=== PATIENT | female | born 1995 | race African-American/Black ===

== ENCOUNTER 2019-04-12 10:08 | Outpatient (CLI) | payer OTHER ==
[2019-04-12 11:05] LABS: #Eosinphils 0.3 thou/uL (0.0-0.7); #Lymphocytes 2.8 thou/uL (1.20-3.40); #Monocytes 0.6 thou/uL (0.11-0.59); #Neutrophils 4.7 thou/uL (1.40-6.50); %Basophils 0.2 % (0.0-1.0); %Eosinophils 3.5 % (0.0-10.0); %Monocytes 6.9 % (0.0-10.0); %Neutrophils 56.4 % (42.0-75.0); Hemoglobin 13.4 g/dL (12.0-16.0); Mean Corpuscular HGB CONC 33.9 g/dL (32.0-36.0); Mean Corpuscular Hemoglobin 29.5 pg (27.0-31.0); Mean Corpuscular Volume 86.8 fL (78.0-98.0); Mean Platelet Volume 7.5 fL (7.4-10.4); Platelet Count 392 thou/uL (130-400); RBC Distribution Width 12.1 % (11.5-14.5); Red Blood Cell (RBC) Count 4.54 mill/uL (4.20-5.40); White Blood Cell (WBC) Count 8.4 thou/uL (4.8-10.8)
[2019-04-12 11:08] LABS: BHCG - Serum Negative (NEGATIVE); Pregs Control Background? CLEAR/WHITE (CLR/WHITE); Pregs Control Bar Appear? YES (CONTROL BAR)
== END 2019-04-12 10:09 | disposition home or self-care (01) ==
LOC: LABBT 10:08
PROVIDERS: ATTEND Orthopaedic Surgery Hand Surgery
DX: Z01.812 Encounter for preprocedural laboratory examination (principal); M79.89 Other specified soft tissue disorders
CPT/HCPCS: 84703; 85025

== ENCOUNTER 2019-04-14 07:35 | Day surgery (SDC) | payer OTHER ==
[2019-04-12 10:28] VITALS: BMI 27.4
[2019-04-14] MEDS ORDERED: ceFAZolin Sodium (SDC) 2 GM/100 ML BAG ONE (08:24)
[2019-04-14] MEDS ORDERED: Bacitracin Zinc Ointment 30 gm TUBE ONE (08:56)
[2019-04-14] MEDS ORDERED: Sodium Chloride 0.9% 10 ML ONE (08:56)
[2019-04-14] MEDS ORDERED: Bupivacaine PF 0.5% 30 ML VIAL ONE (08:56)
[2019-04-14] MEDS ORDERED: Scopolamine 1.5 mg/72 hour Patch ONE (09:50)
[2019-04-14] MEDS ORDERED: Fentanyl 100 MCG/2 ML VIAL ONE ×2 (09:55→12:38)
[2019-04-14] MEDS ORDERED: Midazolam HCl 2 mg/2 ml Vial ONE (09:55)
[2019-04-14] MEDS ORDERED: Thrombin 5000 UNITS/5 ML VIAL ONE (11:19)
[2019-04-14] MEDS ORDERED: Ketorolac Tromethamine 30 MG/ML VIAL ONE (12:43)
[2019-04-14] MEDS ORDERED: Promethazine HCl 25 MG/ML VIAL ONE (12:47)
[2019-04-14] MEDS ORDERED: Ondansetron PF 4 MG/2 ML Vial ONE (15:44)
[2019-04-14] MEDS ORDERED: Lidocaine 1% PF 5 ML VIAL ONE (15:44)
[2019-04-14] MEDS ORDERED: PROPOFOL 200 MG/20 ML VIAL ONE (15:44)
--- NOTE | 2019-04-17 12:02 | OP ---
DATE OF PROCEDURE: 04/14/2019 PREOPERATIVE DIAGNOSIS: Right index finger spindle. 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 PROCEDURES PERFORMED: 1. Excision of benign neoplasm. 2. Excision of nailbed with margin or permanent nail removal. 3. Bone cortex excision, size of mass 2.2 x 1.0 cm and then our proximal 1/3 nail or 7 mm of nail from one radial to ulnar aspect. SPECIMENS SENT: 1. Primary tumor with adventitial subungual piece, which had a proximal margin of greater than 2 mm. 2. Multiple nailbed excision until we had either up to the margin or a 2 mm margin because we split the nailbed in half. 3. Preliminary tumor spindle cell with benign characteristics, etiology, final determination, not known. DESCRIPTION OF PROCEDURE: After successful general endotracheal anesthesia, limb was prepped and draped. The patient had 10 mL of 0.5% Marcaine given. Time-out was done appropriately. We exsanguinated the limb and inflated the tourniquet to 250 mmHg pressure. We then outlined where the normal nail ended, which occupied approximately 6 mm of abnormal tissue distal to this, which was hyperemic, highly vascularized indicative of what I believed to be the tumor margin. We initially split the nailbed large to down the midline to include 5 mm proximal to the eponychial fold and almost 8 mm distally. We found the mass and began to establish margins including fat and dermis at the nail skin fold junction distally, nail and dermis laterally, and then we lifted up the nail and followed the very thick white tissue of the same color as the primary mass and then we sent this to the lab. We also had outlined an area where it appeared to be hypervascular and we resected this from the nailbed initially being approximately 5 to 6 mm of nailbed. This had no margins. We resected another 2.5 mm and on the radial side, had 1.5 mm margin and the other side was up to, but not past the margin. We felt this was adequate resection both clinically and via pathological specimen. However, in order to close now we had to resect some bone cortex approximately 2.5 mm thick circumferentially. We irrigated this, obtained hemostasis with tourniquet deflation, used thrombin-soaked Gelfoam almost 10 minutes of compression until we obtained hemostasis. We then reconstructed the nailbed back to the skin because we had achieved appropriate margins using 6-0 nylon and then we had the nails longitudinal split with 6-0 chromic interrupted repair for both. We closed the skin on the tuft distally almost 7 mm with interrupted 5-0 nylon as we used proximally as well to close. The patient had excellent capillary refill with pink digit tip, no undue pressure was seen, and at that point, we gave the final 10 mL of 0.5% Marcaine with epinephrine at metacarpophalangeal joint block level, applied a soft dressing along with bacitracin, Adaptic, gently applied 4x4s, Kerlix, and then Coban. All the dressings were applied loosely. She left the operating room without evidence of anesthetic or operative complications. Job ID: [id number]
== END 2019-04-14 14:45 | disposition home or self-care (01) ==
LOC: SDC 07:35
PROVIDERS: ATTEND Orthopaedic Surgery Hand Surgery
PROC: 0JBJ0ZZ Excision of Right Hand Subcutaneous Tissue and Fascia, Open Approach (ICD-10-PCS; principal; 2019-04-14)
DX: D21.11 Benign neoplasm of connective and other soft tissue of right upper limb, including shoulder (principal); F41.9 Anxiety disorder, unspecified; F32.9 Major depressive disorder, single episode, unspecified; Z79.899 Other long term (current) drug therapy
CPT/HCPCS: 88304; 88331; 88332; J0690; J1885; J2001; J2250; J2405; J2550; J2704; J3010; J3490; S0020

== ENCOUNTER 2019-09-07 13:42 | Outpatient (CLI) | payer OTHER ==
--- NOTE | 2019-09-07 15:29 | MRI ---
MR the right index finger with and without contrast INDICATION: History of surgical resection of a fingernail mass in March 2019 with a fingernail not eh wing back. There is concern for possible malignant tumor of the right index finger TECHNIQUE: Multiplanar multisequence MR images were obtained of the right index finger with and witho ut contrast utilizing 16 cc of MultiHance. The exam is compared to a prior MRI of the right hand dated 03/06/2019 FINDINGS: There is a persistent masslike prominence involving the nailbed of the right index finger. The mass l esion is predominantly T1 and T2 hypointense with mild heterogeneous enhancement. The lesion measures 13.44 mm in its greatest craniocaudad dimension where previously it measured 12 mm. Its grea test axial dimensions are now 12.44 x 3.0 mm were previously it was 9.6 x 4.6 mm. There is no evidence to suggest a erosion into the bone of the distal phalanx. There is a tiny focus of susceptib ility artifact along the distal tuft of the right index fingers may reflect sequela of the prior surgical resection. This best seen on image 30 of series 10. No joint effusion is evident within the IP joint of the right index finger. No additional signal abnormality is grossly evident. IMPRESSION: Enlarging masslike prominence involving the nailbed of the right index finger. The lesion only mildly enhances. There is no evidence to suggest aggressive infiltrative features in the nearby distal phalangeal bone. Findings are suspicious for a soft tissue neoplasm of low biologic act ivity of the nailbed possibly related to a fibrous type lesion such as scar or small fibroma. Entities such as glomus tumor or an epidermal inclusion cyst is felt to be less likely.
== END 2019-09-07 13:43 | disposition home or self-care (01) ==
LOC: SCSMRI 13:42
PROVIDERS: ATTEND Orthopaedic Surgery Hand Surgery
DX: C80.1 Malignant (primary) neoplasm, unspecified (principal)
CPT/HCPCS: 36415; 80053; 80061; 81001; 84439; 84443; 84481; 85025

== ENCOUNTER 2019-09-22 14:12 | Outpatient (CLI) | payer OTHER ==
--- NOTE | 2019-09-22 15:03 | ULT ---
ULTRASOUND THYROID STANDARD: History: Hyperthyroidism. Comparison: None.. Findings: Real-time grayscale and color evaluation of the thyroid was performed. Isthmus measures 3 mm in AP dimension. Right lobe measures 4.4 x 1.3 x 1.3 cm and the left lobe measu res 4.3 x 1.2 x 1.2 cm. In the right lobe of thyroid along the inferior pole is a 1.2 x 0.6 cm hypoechoic solid nodule which is wider than tall and lobular margins without echogenic foci. This nodule is TIRADS 4: Moderately suspicious. Given its size, follow-up ultrasound in 6-12 months is recommended. There are small subcentimeter nodules in the left lobe of the thyroid which do not require follow-up or aspiration per TIRADS criteria. Impression: Nodule right lobe of thyroid is TIRADS 4: Moderately suspicious. Given its size, follow-up in 6-12 mo nths is recommended. Transcribed Date/Time: 09/22/2019 3:14 PM
== END 2019-09-22 14:13 | disposition home or self-care (01) ==
LOC: SCSULT 14:12
PROVIDERS: ATTEND Family Medicine
DX: E05.90 Thyrotoxicosis, unspecified without thyrotoxic crisis or storm (principal); E04.1 Nontoxic single thyroid nodule
CPT/HCPCS: 76536

== ENCOUNTER 2019-09-28 17:30 | Outpatient (CLI) | payer OTHER | END 2019-09-28 17:31 | disposition home or self-care (01) | LOC: SLEEPLAB 17:30 | PROVIDERS: ATTEND Family Medicine | DX: G47.33 Obstructive sleep apnea (adult) (pediatric) (principal); R53.83 Other fatigue; E66.9 Obesity, unspecified; F41.9 Anxiety disorder, unspecified; F32.9 Major depressive disorder, single episode, unspecified; G47.10 Hypersomnia, unspecified; Z68.31 Body mass index [BMI] 31.0-31.9, adult | CPT/HCPCS: 95806 ==

== ENCOUNTER 2019-10-17 07:27 | Day surgery (SDC) | payer OTHER ==
[2019-10-16 10:19] VITALS: BMI 30.1
[2019-10-17 08:24] LABS: #Basophils 0.1 thou/uL (0.0-0.2); #Eosinphils 0.5 thou/uL (0.0-0.7); #Lymphocytes 3.4 thou/uL (1.20-3.40); #Monocytes 0.6 thou/uL (0.11-0.59); #Neutrophils 5.9 thou/uL (1.40-6.50); %Basophils 0.9 % (0.0-1.0); %Eosinophils 4.8 % (0.0-10.0); %Monocytes 5.8 % (0.0-10.0); %Neutrophils 56.5 % (42.0-75.0); Hemoglobin 12.9 g/dL (12.0-16.0); Mean Corpuscular HGB CONC 33.4 g/dL (32.0-36.0); Mean Corpuscular Hemoglobin 29.4 pg (27.0-31.0); Mean Corpuscular Volume 88.2 fL (78.0-98.0); Mean Platelet Volume 7.3 fL (7.4-10.4); Platelet Count 370 thou/uL (130-400); RBC Distribution Width 12.1 % (11.5-14.5); White Blood Cell (WBC) Count 10.5 thou/uL (4.8-10.8)
[2019-10-17] MEDS ORDERED: Scopolamine 1.5 mg/72 hour Patch ONE (09:16)
[2019-10-17] MEDS ORDERED: Midazolam HCl 2 mg/2 ml Vial ONE (10:45)
[2019-10-17] MEDS ORDERED: HYDROmorphone 0.5 MG/0.5 ML SYRINGE ONE (10:45)
[2019-10-17] MEDS ORDERED: Betamet Acet/Betamet Na Ph 30 MG/5 ML VIAL ONE (10:47)
[2019-10-17] MEDS ORDERED: Bacitracin Zinc Ointment 30 gm TUBE ONE (10:47)
[2019-10-17] MEDS ORDERED: Bupivacaine PF 0.5% 30 ML VIAL ONE (10:47)
[2019-10-17] MEDS ORDERED: Succinylcholine Chloride 20 MG/ML 10 ml SYRINGE FS ONE (11:40)
[2019-10-17] MEDS ORDERED: Dexamethasone 20 MG/5 ML VIAL ONE (11:40)
[2019-10-17] MEDS ORDERED: Ondansetron PF 4 MG/2 ML Vial ONE (11:40)
[2019-10-17] MEDS ORDERED: Ketorolac Tromethamine 30 MG/ML VIAL ONE (11:40)
[2019-10-17] MEDS ORDERED: PROPOFOL 200 MG/20 ML VIAL ONE (11:40)
[2019-10-17] MEDS ORDERED: Lidocaine 1% PF 5 ML VIAL ONE (11:40)
[2019-10-17] MEDS ORDERED: Promethazine HCl 25 MG/ML VIAL ONE (14:17)
--- NOTE | 2019-10-18 08:13 | OP ---
DATE OF PROCEDURE: 10/17/2019 PREOPERATIVE DIAGNOSIS: Benign spindle cell tumor, recurrent, aggressive, nailbed. POSTOPERATIVE DIAGNOSIS: Benign spindle cell tumor, recurrent, aggressive, nailbed with root found on the radial aspect of nail, being approximately 1.5 cm long x 5 mm wide. COMPLICATIONS: None. TOURNIQUET TIME: 42 minutes. PROCEDURES PERFORMED: 1. Benign tumor removal, 4 x 2 cm, right index finger. 2. Nail removal with nailbed ablation. 3. Application of Integra graft 2.5 by 1.5 cm, two layer Integra. C-ARM: None. SPECIMENS: Bone plus tumor root plus whole nailbed, sent to Pathology, where we waited on fresh frozen to make sure we had some margins. BLOOD LOSS: 25 mL or less. DESCRIPTION OF PROCEDURE: After the patient had successful general endotracheal anesthesia, limb was prepped and draped. She was brought to the operating room because of previous nailbed tumor removal recurred, now occupying almost 2/3 of the nail on MRI and with the patient having elevated mass effect. We then after prepping and draping gave her 20 mL of 0.5% Marcaine to block the index finger and we gave her 10 at the end of procedure when the wound was closed. She also complained of mass effect on the palmar aspect of the DIP joint, so we initially made a 2 cm incision here, identified neurovascular bundle, then found what appeared to be a well-formed lipoma over the palmar distal interphalangeal joint, approximately 8 mm. This was from a separate incision in palmar. We removed it, protected neurovascular bundle, and then closed this with interrupted 4-0 nylon in simple pattern. Then, we approached the palmar area. We lifted up the remnant of the nail, which was only 1 cm long and 5 mm wide, occupied a third of the nail primarily on the radial side. Then, we lifted up the eponychial fold, dissected, where we could visualize the nailbed germinal matrix, extensor tendon, terminal in junction. From here, we began to with a Wright blade lift the nail off 1st the germinal matrix. We then went deep in the radial gutter and it was here that we saw an almost 2 cm x 4 mm tubular type mass connected to the nailbed, which appeared to be the root of the spindle cell tumor. We elevated this. We then went down to the lateral edge of the nailbed on the entire radial side, where the junction with the bone and the palmar fat pad and septi. We did the same on the ulnar side, but there was no other mass seen. Distally, we removed at least 2 mm of skin. We marked the margins with separate colors, proximal ulnar with a purple suture, proximal radial with blue suture, distal ulna with black suture, and distal radial with a white suture. We then sent this to Pathology along with the tubular type specimen. We then removed all white soft tissue appearance from the bone and sent this as a specimen along with bone. We awaited the fresh frozen, then irrigated and then released the tourniquet. We obtained hemostasis. We attempted to do direct closure, but this was too tight and caused circulatory issues, so we created a small flap of the eponychial fold and extended it to get some further coverage and it was left with a teardrop shaped nail. We then placed a 2 cm x 2 cm Integra graft on the bone and then double layered it, secured it with suture to the skin and then stapled the middle, cotton ball soaked, over Adaptic over bacitracin on as a bolster. Soft dressing was applied and the patient had excellent palmar circulation before its application and then she left the operating room without evidence of anesthetic or operative complication. Job ID: [id number]
== END 2019-10-17 15:50 | disposition home or self-care (01) ==
LOC: SDC 07:27
PROVIDERS: ATTEND Orthopaedic Surgery Hand Surgery
PROC: 0JBJ0ZZ Excision of Right Hand Subcutaneous Tissue and Fascia, Open Approach (ICD-10-PCS; principal; 2019-10-17)
DX: D21.11 Benign neoplasm of connective and other soft tissue of right upper limb, including shoulder (principal); F41.9 Anxiety disorder, unspecified; F31.9 Bipolar disorder, unspecified; Z79.899 Other long term (current) drug therapy
CPT/HCPCS: 36415; 85025; 88304; 88305; 88307; 88311; 88331; 88332; 88333; C9363; J0690; J0702; J1100; J1170; J1885; J2001; J2250; J2405; J2550; J2704; J3490; S0020

== ENCOUNTER 2019-10-25 12:25 | Day surgery (SDC) | payer OTHER ==
[2019-10-24 12:37] VITALS: BMI 31.1
[~2019-10-25 12:25] MED LIST: FLU VACC QS2019-20(6MOS UP)/PF 60 MCG/0.5 ML SYRINGE IM ONE
[2019-10-25] MEDS ORDERED: Sodium Bicarbonate 2.5 MEQ/5 ML VIAL ONE (12:56)
[2019-10-25] MEDS ORDERED: Lidocaine 1% PF 5 ML VIAL ONE (12:56)
[2019-10-25 13:18] VITALS: BP 127/75; TEMP 98
--- NOTE | 2019-10-25 14:45 | ULT ---
Sonographic guided fine needle aspiration right thyroid lobe nodule HISTORY: Thyroid mass. FINDINGS: After explaining the procedure and answering all questions, the oval hypoechoic mass of the right thyroid lobe was visualized. Sterile technique, buffered local anesthesia, sonographic guidance, and a medial approach were used to carefully advance the tip of a 25-gauge needle into the hypoechoic mass. Fine needle aspirate was obtained using [id number] technique. A total of 4 passes were made. Tissue sent to pathology for evaluation. Patient tolerated the procedure well and w as dismissed in good condition. IMPRESSION: Technically successful sonographic guided FNA right thyroid lobe mass. Pathology is pendi ng.
== END 2019-10-25 13:35 | disposition home or self-care (01) ==
LOC: ULT 12:25
PROVIDERS: ATTEND Specialist
PROC: BG44ZZZ Ultrasonography of Thyroid Gland (ICD-10-PCS; principal; 2019-10-25)
PROC: 0GBH3ZX Excision of Right Thyroid Gland Lobe, Percutaneous Approach, Diagnostic (ICD-10-PCS; principal; 2019-10-25)
DX: E04.1 Nontoxic single thyroid nodule (principal); E11.9 Type 2 diabetes mellitus without complications; E78.00 Pure hypercholesterolemia, unspecified; E78.2 Mixed hyperlipidemia; I10 Essential (primary) hypertension; I25.10 Atherosclerotic heart disease of native coronary artery without angina pectoris; F31.9 Bipolar disorder, unspecified; F41.9 Anxiety disorder, unspecified; G47.33 Obstructive sleep apnea (adult) (pediatric); Z79.84 Long term (current) use of oral hypoglycemic drugs; Z79.899 Other long term (current) drug therapy; Z87.891 Personal history of nicotine dependence; Z95.0 Presence of cardiac pacemaker
CPT/HCPCS: 60100; 76942; 88173; J2001

== ENCOUNTER 2019-11-22 12:19 | Day surgery (SDC) | payer OTHER ==
[2019-11-21 12:30] VITALS: BMI 30.2
[~2019-11-22 12:19] MED LIST changes: +Dexamethasone 20 MG/5 ML VIAL ONE; -FLU VACC QS2019-20(6MOS UP)/PF 60 MCG/0.5 ML SYRINGE IM ONE; +Ketorolac Tromethamine 30 MG/ML VIAL ONE; +Lidocaine 1% PF 5 ML VIAL ONE; +Metoclopramide HCl 10 MG/2 ML VIAL ONE; +Ondansetron PF 4 MG/2 ML Vial ONE; +PROPOFOL 200 MG/20 ML VIAL ONE
[2019-11-22] MEDS ORDERED: Midazolam HCl 2 mg/2 ml Vial ONE ×2 (13:06→14:23)
[2019-11-22] MEDS ORDERED: Famotidine/PF 20 mg/2ml Vial ONE (13:06)
[2019-11-22] MEDS ORDERED: Scopolamine 1.5 mg/72 hour Patch ONE (13:06)
[2019-11-22] MEDS ORDERED: Bupivacaine 0.25% HCL 30 ML VIAL ONE (13:33)
[2019-11-22] MEDS ORDERED: Thrombin 5000 UNITS/5 ML VIAL ONE (13:33)
[2019-11-22] MEDS ORDERED: Bacitracin Zinc Ointment 30 gm TUBE ONE (13:33)
[2019-11-22] MEDS ORDERED: Sodium Chloride 0.9% 10 ML ONE (13:34)
[2019-11-22] MEDS ORDERED: Promethazine HCl 25 MG/ML VIAL ONE (13:35)
[2019-11-22] MEDS ORDERED: Propofol 1,000 MG/100 ML VIAL IV ONE (13:35)
[2019-11-22] MEDS ORDERED: Propofol 500 MG/50 ML VIAL ONE (13:35)
[2019-11-22] MEDS ORDERED: PROPOFOL 0 ML ONE (13:35)
[2019-11-22] MEDS ORDERED: Fentanyl 100 MCG/2 ML VIAL ONE (14:45)
[2019-11-22] MEDS ORDERED: Bupivacaine PF 0.5% 30 ML VIAL ONE (14:53)
--- NOTE | 2019-11-23 11:55 | OP ---
DATE OF PROCEDURE: 11/22/2019 PREOPERATIVE DIAGNOSES: 1. Right index finger nail full-thickness skin loss with Integra graft of approximately four weeks covering it. 2. Integra with complete coverage over the bone area leaving layer almost 2 mm thick for skin grafting adherence. PROCEDURES PERFORMED: 1. Removal of Integra graft. 2. Full-thickness skin graft, right antecubital source to the right index finger tip 2.5 x 1.5 cm closed primarily. ESTIMATED BLOOD LOSS: 5 mL. TOURNIQUET TIME: Zero. INJECTED: 30 mL, 15 in the finger and 15 in the donor site with 0.5% Marcaine without epinephrine. INDICATIONS: The patient returns for followup after extensive tumor removal requiring a complete nail bed excision, but in an effort to maintain length, we manipulated the skin somewhat and then closed and then left an area approximately cm with Integra graft. This was now ready for coverage. DESCRIPTION OF PROCEDURE: After successful propofol only, we gave her the block as listed above, divided equally between the donor site and the index finger, right metacarpophalangeal joint level. We waited 8 minutes and then proceeded with removal of sutures. After removal of the sutures, we then noticed that the Integra graft had nearly 100% take with complete coverage of the bone. We removed a fair amount of denuded skin, made a measurement of 2 x 1 cm, so we brought a 2.5 x 1.5 cm full-thickness skin graft harvested in a single layer from the antecubital fossa. We then closed the donor site with a running 4-0 Monocryl and then the epidermis with an interrupted 4-0 nylon simple pattern. We thinned and de-fatted the graft, bolstered it with a 4-corner, 4-0 nylon suture and then around this, we used a 5-0 chromic to hold the graft adherent to the wound edges. We had excellent coverage and an appropriate application of flatness and there was no bleeding. We then placed bacitracin, Adaptic on top of the graft, bolstered with mineral oil soaked cotton ball, tying all four sutures in a cross pattern. We placed a bulky dressing on both sites and the patient left the operating room without evidence of anesthetic or operative complication. Job ID: [id number]
== END 2019-11-22 17:20 | disposition home or self-care (01) ==
LOC: SDC 12:19
PROVIDERS: ATTEND Orthopaedic Surgery Hand Surgery
PROC: 0HRFX73 Replacement of Right Hand Skin with Autologous Tissue Substitute, Full Thickness, External Approach (ICD-10-PCS; principal; 2019-11-22)
DX: Z48.1 Encounter for planned postprocedural wound closure (principal); F41.9 Anxiety disorder, unspecified; F31.9 Bipolar disorder, unspecified; Z79.899 Other long term (current) drug therapy
CPT/HCPCS: J0690; J1100; J1885; J2001; J2175; J2250; J2405; J2550; J2704; J2765; J3010; J3490; S0020; S0028

== ENCOUNTER 2022-01-27 12:06 | Outpatient (CLI) | payer OTHER | END 2022-01-27 12:07 | disposition home or self-care (01) | LOC: SCSMRI 12:06 | PROVIDERS: ATTEND Orthopaedic Surgery Hand Surgery | DX: R22.31 Localized swelling, mass and lump, right upper limb (principal); M89.9 Disorder of bone, unspecified ==